=== PATIENT | female | born 1990 | race Caucasian/White ===

== ENCOUNTER 2017-07-30 08:56 | Emergency (ER) | payer SELFPAY ==
--- NOTE | 2017-07-30 09:02 | UC ---
Complaint Female HPI - HPI Summary HPI Summary: 27 yo female presents with urinary burning and urgency since yesterday. She tells me that this has happened in the past after sex and she ended up with a UTI. She was sexually active two days ago and now has UTI symptoms again. Denies fever, chills, abdominal pain, n/v, or flank pain. She is also having vaginal "swelling" and has chronic BV for which she uses OTC metrogel. Denies vaginal bleeding or abnormal discharge. LMP was 3 days ago - History Of Current Complaint Stated Complaint: FREQUENT URINATION Hx Obtained From: Patient Onset/Duration: Sudden Onset Timing: Constant Severity Initially: Mild Severity Currently: Mild Pain Intensity: 3 Pain Scale Used: 0-10 Numeric - Allergies/Home Medications Allergies/Adverse Reactions: Allergies Allergy/AdvReac Type Severity Reaction Status Date / Time No Known Allergies Allergy Verified 07/30/17 09:08 Home Medications: Home Medications metroNIDAZOLE [Nuvessa] 1 ppm VAGINAL DAILY 07/30/17 [History Confirmed 07/30/17 ] PMH/Surg Hx/FS Hx/Imm Hx - Additional Past Medical History Additional PMH: None Previously Healthy: Yes - Surgical History Surgical History: Yes Surgery Procedure, Year, and Place: wisdom teeth - Family History Known Family History: Positive: None - Social History Occupation: Employed Full-time Lives: With Family Alcohol Use: Occasionally Substance Use Type: None Smoking Status (MU): Never Smoked Tobacco Review of Systems Constitutional: Negative Skin: Negative Respiratory: Negative Cardiovascular: Negative Gastrointestinal: Negative Genitourinary: Dysuria, Frequency, Urgency Neurovascular: Negative Neurological: Negative Psychological: Negative All Other Systems Reviewed And Are Negative: Yes Physical Exam - Summary Physical Exam Summary: GENERAL: NAD. WDWN. No pain distress. SKIN: No rashes, sores, lesions, or open wounds. NECK: Supple. Nontender. No lymphadenopathy. CHEST: CTAB. No r/r/w. No accessory muscle use. Breathing comfortably and in no distress. CV: RRR. Without m/r/g. Pulses intact. Brisk cap refill. ABDOMEN: Soft. NTTP. No distention or guarding. No organomegaly. No CVA tenderness. Bowel sounds present NEURO: Alert. CN II-XII grossly intact. PSYCH: Age appropriate behavior. Triage Information Reviewed: Yes Vital Signs: Vital Signs: Temp Pulse Resp BP Pulse Ox 98.1 F 81 18 124/73 98 07/30/17 09:02 07/30/17 09:02 07/30/17 09:02 07/30/17 09:02 07/30/17 09:02 Vital Signs Reviewed: Yes Complaint Female Dx - Course Course Of Treatment: UA with 3+ leuks, 3+ blood, and 1+ protein. Given her vaginal swelling - I recommended that she have a pelvic exam. She did not want to do this with a male provider. Unfortunately there are only 2 providers on currently working in today and both are male. There will be a 3rd provider, female, coming in later today - pt elected to return later today for a pelvic exam. Will treat with Macrobid and Pyridium for UTI - Differential Dx/Diagnosis Provider Diagnoses: UTI Discharge - Sign-Out/Discharge Documenting (check all that apply): Discharge/Admit/Transfer - Discharge Plan Condition: Stable Disposition: HOME Prescriptions: Nitrofurantoin Monohyd/M-Cryst [Macrobid 100 mg Capsule] 100 mg PO BID #10 cap Phenazopyridine 200 mg (NF) [Pyridium 200 MG tab *] 200 mg PO TID #6 tab Patient Education Materials: Urinary Tract Infection in Women (DC) Referrals: No Primary Care Phys,NOPCP [Primary Care Provider] - Additional Instructions: If you develop a fever, shortness of breath, chest pain, new or worsening symptoms - please call your PCP or go to the ED. - Billing Disposition and Condition Condition: STABLE Disposition: HOME
[2017-07-30 09:08] VITALS: BP 124/73
--- NOTE | 2017-08-01 12:12 | UC ---
- Progress Note Progress Note: Please call patient. Vaginal swab positive for both BV and yeast. Continue MetroGel as prescribed. ERX for Diflucan sent to [facility]. Follow- up with PCP if needed. - Gia Duong M.D. Discharge - Sign-Out/Discharge Documenting (check all that apply): Post-Discharge Follow Up - Discharge Plan Condition: Stable Disposition: HOME Prescriptions: Fluconazole 150 MG (NF) [Diflucan 150 mg (NF)] 150 mg PO ONCE #2 tab Nitrofurantoin Monohyd/M-Cryst [Macrobid 100 mg Capsule] 100 mg PO BID #10 cap Phenazopyridine 200 mg (NF) [Pyridium 200 MG tab *] 200 mg PO TID #6 tab Patient Education Materials: Urinary Tract Infection in Women (DC) Referrals: No Primary Care Phys,NOPCP [Primary Care Provider] - Additional Instructions: If you develop a fever, shortness of breath, chest pain, new or worsening symptoms - please call your PCP or go to the ED. - Billing Disposition and Condition Condition: STABLE Disposition: HOME
== END 2017-07-30 09:30 | disposition home or self-care (01) ==
LOC: UCEAST 08:56
DX: N39.0 Urinary tract infection, site not specified (principal); N76.0 Acute vaginitis; B96.89 Other specified bacterial agents as the cause of diseases classified elsewhere; Z79.2 Long term (current) use of antibiotics
CPT/HCPCS: 81003; 87077; 87086; 87186; 99212; G0463

== ENCOUNTER 2017-07-30 14:15 | Emergency (ER) | payer SELFPAY ==
[2017-07-30 14:20] VITALS: BP 107/62
--- NOTE | 2017-07-30 14:40 | ED ---
GI/ HPI - HPI Summary HPI Summary: 27F presents with abnormal vaginal discharge for the past two days. She has history of chronic BV. She normally use topical flagyl. She states she gets an infection everytime she has sex. She had sex two days ago. She denies any abdominal pain. She states she has been having urgency, frequency, or urgency. She was seen her earlier today and had was diagnosed with uti and placed on macrobid. She denies any fevers. She denies any nausea vomiting. She does not have a history of UTIs. She states her vaginal discharge is malodorous. She denies any history of yeast infections. - History of Current Complaint Chief Complaint: UCGU Time Seen by Provider: 07/30/17 14:18 Stated Complaint: PERSONAL Hx Last Menstrual Period: 10 days ago Pain Intensity: 0 - Allergy/Home Medications Allergies/Adverse Reactions: Allergies Allergy/AdvReac Type Severity Reaction Status Date / Time No Known Allergies Allergy Verified 07/30/17 14:20 PMH/Surg Hx/FS Hx/Imm Hx Endocrine/Hematology History: Denies: Hx Diabetes Cardiovascular History: Denies: Hx Hypertension, Hx Pacemaker/ICD History: Denies: Hx Renal Disease Sensory History: Denies: Hx Hearing Aid Psychiatric History: Denies: Hx Panic Disorder - Surgical History Surgery Procedure, Year, and Place: wisdom teeth Infectious Disease History: No Infectious Disease History: Denies: Traveled Outside the in Last 30 Days - Family History Known Family History: Positive: None - Social History Alcohol Use: Occasionally Substance Use Type: Reports: None Smoking Status (MU): Never Smoked Tobacco Type: Cigarettes Review of Systems Negative: Fever Negative: Chest Pain Negative: Shortness Of Breath Positive: Other - vaginal discharge. Negative: Abdominal Pain, Vomiting, Nausea All Other Systems Reviewed And Are Negative: Yes Physical Exam Triage Information Reviewed: Yes Vital Signs On Initial Exam: Initial Vitals Temp Pulse Resp BP Pulse Ox 98.3 F 75 18 107/62 100 07/30/17 14:18 07/30/17 14:18 07/30/17 14:18 07/30/17 14:18 07/30/17 14:18 Vital Signs Reviewed: Yes Appearance: Positive: Well-Appearing Skin: Positive: Warm, Dry Head/Face: Positive: Normal Head/Face Inspection Eyes: Positive: Normal, Conjunctiva Clear Respiratory/Lung Sounds: Positive: Clear to Auscultation, Breath Sounds Present Cardiovascular: Positive: Normal, RRR Abdomen Description: Positive: Nontender, Soft Bowel Sounds: Positive: Present Pelvic Exam: Positive: External Exam Normal, Bimanual Exam Normal, No Cerv. Motion Tender, Discharge - white discharge, malordorous Musculoskeletal: Positive: Normal Neurological: Positive: Normal Psychiatric: Positive: Normal Diagnostics - Vital Signs Vital Signs Temp Pulse Resp BP Pulse Ox 07/30/17 14:18 98.3 F 75 18 107/62 100 - Laboratory Lab Statement: Any lab studies that have been ordered have been reviewed, and results considered in the medical decision making process. GIGU Course/Dx - Course Course Of Treatment: 27F presents with abnormal vaginal discharge for the past two days. She has history of chronic BV. She normally use topical flagyl. She states she gets an infection everytime she has sex. She had sex two days ago. She denies any abdominal pain. She states she has been having urgency, frequency, or urgency. She was seen her earlier today and had was diagnosed with uti and placed on macrobid. She denies any fevers. She denies any nausea vomiting. She does not have a history of UTIs. She states her vaginal discharge is malodorous. She denies any history of yeast infections. On exam weight malodorous discharge present on pelvic exam. No cervical motion tenderness. Will treat with topical Flagyl per patient request. Will wait for final cultures. Patient understands agrees with plan. - Diagnoses Differential Diagnoses - Female: Candidiasis, STD, Urinary Tract Infection Provider Diagnoses: Bacterial vaginosis Discharge - Sign-Out/Discharge Documenting (check all that apply): Discharge/Admit/Transfer - Discharge Plan Condition: Good Disposition: HOME Prescriptions: metroNIDAZOLE [Metronidazole 0.75 % gel] 1 applic TOPICAL BID #1 gel Patient Education Materials: Bacterial Vaginosis (ED) Referrals: No Primary Care Phys,NOPCP [Primary Care Provider] - Additional Instructions: apply applicator twice a day for 5 days Establish care with programming internship Drink plenty of fluids Return to ED if develop any new or worsening symptoms - Billing Disposition and Condition Condition: GOOD Disposition: HOME
== END 2017-07-30 14:43 | disposition home or self-care (01) ==
LOC: UCEAST 14:15
DX: N76.0 Acute vaginitis (principal); B96.89 Other specified bacterial agents as the cause of diseases classified elsewhere
CPT/HCPCS: 87480; 87491; 87510; 87591; 87661; 99212; G0463